=== PATIENT | female | born 1995 | race Caucasian/White ===

== ENCOUNTER 2021-08-21 19:44 | Emergency (ER) | payer BC ==
[~2021-08-21] VITALS: Ht 162.6 cm; Wt 77.3 kg
[2021-08-21 19:49] VITALS: TEMP 97.1
[2021-08-21 22:20] VITALS: BP 110/74; PULSE 68
== END 2021-08-21 22:20 | disposition home or self-care (01) ==
LOC: COL.ER 19:44
DX: S86.912A Strain of unspecified muscle(s) and tendon(s) at lower leg level, left leg, initial encounter (principal); Z28.310 Unvaccinated for COVID-19; X50.1XXA Overexertion from prolonged static or awkward postures, initial encounter; W18.30XA Fall on same level, unspecified, initial encounter
CPT/HCPCS: L1830; L1846